=== PATIENT | female | born 1980 | race American Indian/Alaskan Native ===

== ENCOUNTER 2017-04-21 22:57 | Emergency (ER) | payer MEDICAID ==
[2017-04-22 01:37] LABS: Bacteria,Urine 2+ /HPF (Negative); Bilirubin,Urine NEG (Negative); Blood,Urine SM (Negative); Ketones,Urine NEG (Negative); Leukocyte Esterase,Urine TR (Negative); Mucus,Urine FEW /HPF; Nitrite,Urine NEG (Negative); Protein,Urine <15 mg/dL mg/dL (Negative); Urobilinogen,Urine < 2.0 mg/dL (<2.0)
[2017-04-22 01:40] LABS: Basophils % (Auto) 0.6 % (0.0-1.8); Eosinophils % (Auto) 1.8 % (0.0-4.3); Hematocrit 38.9 % (30.3-42.9); Hemoglobin 13.4 gm/dl (10.1-14.3); Mean Corpuscular HGB Conc 34 % (30-34); Mean Corpuscular Hemoglobin 30 pg (28-32); Mean Corpuscular Volume 86 fl (79-97); Platelet Count 227 K/mm3 (140-440); Red Cell Distribution Width 13.8 % (13.2-15.2); White Blood Count 8.4 K/mm3 (4.5-11.0)
[2017-04-22] MEDS ORDERED: ZITHROMAX PO ONE (01:54)
[2017-04-22] MEDS ORDERED: CATAPRES PO ONE (01:54)
[2017-04-22] MEDS ORDERED: ROCEPHIN 250 MG in NACL 0.9% 50 ML IV ONE (01:54)
[2017-04-22] MEDS ORDERED: ROCEPHIN ONE (02:30)
--- NOTE | 2017-04-22 02:56 | Emergency Department Report ---
ED Chest Pain HPI - General Chief Complaint: Urogenital-Female Stated Complaint: STD Time Seen by Provider: 04/22/17 00:51 Source: patient Mode of arrival: Ambulatory Limitations: No Limitations - History of Present Illness Initial Comments: 36-year-old female with a past medical history of hypertension presents to the hospital with multiple complaints. Complaint #1: Possible STD exposure Patient is accompanied by her boyfriend who is also a patient it was examined by me. He has zhen penile discharge and they had unprotected sex. Patient denies any abnormal discharge, pelvic pain, or dysuria. Complaint #2: Uncontrolled blood pressure Patient admits to being noncompliant with her lisinopril hydrochlorothiazide 20/ 25 mg. She did take 1 tablet this evening after her blood pressure was checked in triage but does not take the medication because it gives her headache and patient states she has lost some weight. She has not discussed a side effect with her PMD. Upon further questioning patient complains of intermittent sharp chest pain during exertion worse for the past week. She has a history of DVT in the past not currently on anticoagulation. Patient denies calf pain. 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 Patient denies previous history of stress test. Patient is not forthcoming with complaint because she does not want to be admitted to the hospital but has agreed to some ED workup. Severity scale (0 -10): 5 - Related Data Previous Rx's Medication Instructions Recorded Last Taken Type Nitrofurantoin Monohyd/M-Cryst 100 mg PO BID #10 capsule 04/22/17 Unknown Rx [Macrobid 100 mg Capsule] amLODIPine [Norvasc] 10 mg PO DAILY #30 tab 04/22/17 Unknown Rx Allergies Allergy/AdvReac Type Severity Reaction Status Date / Time No Known Allergies Allergy Verified 04/22/17 01:58 Heart Score - HEART Score History: Slightly suspicious EKG: Non-specific Age: < 45 Risk factors: 1-2 risk factors Troponin: < normal limit HEART Score: 2 ED Review of Systems ROS: Stated complaint: STD Other details as noted in HPI Comment: All other systems reviewed and negative Other: Constitutional: No fevers chills Eyes: No eye pain visual changes ENT: No ear pain or throat pain Neck: Denies pain Respiratory: Denies cough wheezing Cardiovascular: Denies palpitations, syncope GI: Denies abdominal pain, nausea, vomiting, diarrhea : Denies dysuria, urinary frequency, or urgency Musculoskeletal: Denies back pain, joint swelling Skin: Denies rash Neurologic: Denies headache, numbness, weakness Psychiatric: Denies suicidal ideation, hallucinations ED Past Medical Hx - Past Medical History Previous Medical History?: Yes Hx Hypertension: Yes Hx Deep Vein Thrombosis: Yes - Surgical History Past Surgical History?: No - Social History Smoking Status: Never Smoker Substance Use Type: None - Medications Home Medications: Home Medications Medication Instructions Recorded Confirmed Last Taken Type Nitrofurantoin Monohyd/M-Cryst 100 mg PO BID #10 capsule 04/22/17 Unknown Rx [Macrobid 100 mg Capsule] amLODIPine [Norvasc] 10 mg PO DAILY #30 tab 04/22/17 Unknown Rx ED Physical Exam - General Limitations: No Limitations - Other Other exam information: General: No limitations, patient is alert in no acute distress Head exam: Atraumatic, normocephalic Eyes exam: Normal appearance ENT: Moist mucous membrane, normal oropharynx Neck exam: Normal inspection, full range of motion, no meningismus nontender Respiratory exam: Clear to auscultation bilateral, no wheezes, rales, crackles Cardiovascular: Normal rate and rhythm, normal heart sounds Abdomen: Soft, nondistended, and nontender, with normal bowel sounds, no rebound, or guarding : No vaginal discharge, CMT, or adnexal tenderness Extremity: Limit to range of motion of right hip secondary to previous surgery for tenderness or edema Back: Normal Inspection, full range of motion, no tenderness Neurologic: Alert, oriented x3, cranial nerves intact, no motor or sensory deficit Psychiatric: normal affect, normal mood Skin: Warm, dry, intact ED Course Vital Signs 04/21/17 04/21/17 04/22/17 23:04 23:13 01:04 Temperature 98.3 F Pulse Rate 109 H 93 H 87 Respiratory 17 21 Rate Blood Pressure 211/117 Blood Pressure 175/110 [Right] O2 Sat by Pulse 98 Oximetry 04/22/17 04/22/17 04/22/17 01:05 01:06 01:07 Temperature Pulse Rate 92 H 87 90 Respiratory 16 16 27 H Rate Blood Pressure 167/102 167/102 Blood Pressure [Right] O2 Sat by Pulse Oximetry 04/22/17 04/22/17 04/22/17 01:09 01:11 01:13 Temperature Pulse Rate 84 86 83 Respiratory 21 20 15 Rate Blood Pressure 167/102 167/102 167/102 Blood Pressure [Right] O2 Sat by Pulse Oximetry 04/22/17 04/22/17 04/22/17 01:15 01:17 01:19 Temperature Pulse Rate 81 99 H 88 Respiratory 20 29 H 32 H Rate Blood Pressure 165/102 165/102 165/102 Blood Pressure [Right] O2 Sat by Pulse Oximetry 04/22/17 04/22/17 04/22/17 01:21 01:23 01:25 Temperature Pulse Rate 111 H 95 H 87 Respiratory 13 24 23 Rate Blood Pressure 165/102 165/102 165/102 Blood Pressure [Right] O2 Sat by Pulse Oximetry 04/22/17 04/22/17 04/22/17 01:27 01:29 01:30 Temperature 98.2 F Pulse Rate 88 94 H 91 H Respiratory 15 33 H 26 H Rate Blood Pressure 165/102 165/102 162/111 Blood Pressure 165/102 [Right] O2 Sat by Pulse 97 Oximetry 04/22/17 04/22/17 04/22/17 01:53 01:55 01:57 Temperature Pulse Rate 79 80 88 Respiratory 19 21 21 Rate Blood Pressure 181/113 181/113 181/113 Blood Pressure [Right] O2 Sat by Pulse Oximetry 04/22/17 04/22/17 04/22/17 01:58 01:59 02:00 Temperature Pulse Rate 80 81 86 Respiratory 21 28 H 30 H Rate Blood Pressure 164/100 164/100 156/104 Blood Pressure [Right] O2 Sat by Pulse Oximetry 04/22/17 04/22/17 04/22/17 02:01 02:03 02:05 Temperature Pulse Rate 82 85 84 Respiratory 27 H 24 17 Rate Blood Pressure 156/104 156/104 156/104 Blood Pressure [Right] O2 Sat by Pulse Oximetry 04/22/17 04/22/17 04/22/17 02:07 02:09 02:11 Temperature Pulse Rate 86 81 80 Respiratory 19 18 27 H Rate Blood Pressure 156/104 156/104 143/97 Blood Pressure [Right] O2 Sat by Pulse Oximetry 04/22/17 04/22/17 04/22/17 02:13 02:15 02:17 Temperature Pulse Rate 94 H 91 H 89 Respiratory 17 14 18 Rate Blood Pressure 143/97 143/97 143/97 Blood Pressure [Right] O2 Sat by Pulse Oximetry 04/22/17 04/22/17 04/22/17 02:19 02:20 02:21 Temperature Pulse Rate 95 H 84 86 Respiratory 17 15 25 H Rate Blood Pressure 143/97 143/97 143/97 Blood Pressure [Right] O2 Sat by Pulse Oximetry 04/22/17 04/22/17 04/22/17 02:22 02:23 02:41 Temperature Pulse Rate 78 81 Respiratory 22 18 Rate Blood Pressure 148/98 148/98 156/102 Blood Pressure [Right] O2 Sat by Pulse Oximetry 04/22/17 04/22/17 04/22/17 02:45 02:55 03:00 Temperature Pulse Rate 77 Respiratory Rate Blood Pressure 151/106 151/106 167/113 Blood Pressure [Right] O2 Sat by Pulse Oximetry 04/22/17 04/22/17 04/22/17 03:13 03:15 03:17 Temperature Pulse Rate 77 78 76 Respiratory 14 25 H 24 Rate Blood Pressure 167/113 146/99 146/99 Blood Pressure [Right] O2 Sat by Pulse Oximetry 04/22/17 04/22/17 04/22/17 03:19 03:21 03:23 Temperature Pulse Rate 85 72 76 Respiratory 15 22 21 Rate Blood Pressure 146/99 146/99 146/99 Blood Pressure [Right] O2 Sat by Pulse Oximetry 04/22/17 04/22/17 04/22/17 03:25 03:27 03:29 Temperature Pulse Rate 77 72 72 Respiratory 24 21 21 Rate Blood Pressure 146/99 146/99 146/99 Blood Pressure [Right] O2 Sat by Pulse Oximetry 04/22/17 04/22/17 04/22/17 03:30 03:31 03:33 Temperature Pulse Rate 79 77 77 Respiratory 21 20 21 Rate Blood Pressure 144/87 144/87 144/87 Blood Pressure [Right] O2 Sat by Pulse Oximetry 04/22/17 04/22/17 04/22/17 03:35 03:37 03:39 Temperature Pulse Rate 73 90 85 Respiratory 20 21 21 Rate Blood Pressure 144/87 144/87 144/87 Blood Pressure [Right] O2 Sat by Pulse Oximetry 04/22/17 04/22/17 04/22/17 03:41 03:43 03:45 Temperature Pulse Rate 75 81 78 Respiratory 21 20 18 Rate Blood Pressure 144/87 144/87 130/84 Blood Pressure [Right] O2 Sat by Pulse Oximetry 04/22/17 04/22/17 04/22/17 03:47 03:49 03:51 Temperature Pulse Rate 87 83 87 Respiratory 22 20 24 Rate Blood Pressure 130/84 130/84 151/106 Blood Pressure [Right] O2 Sat by Pulse Oximetry 04/22/17 04/22/17 04/22/17 03:53 03:55 03:57 Temperature Pulse Rate 68 101 H 90 Respiratory 24 21 23 Rate Blood Pressure 151/106 151/106 151/106 Blood Pressure [Right] O2 Sat by Pulse Oximetry 04/22/17 04/22/17 04/22/17 03:59 04:00 04:01 Temperature Pulse Rate 80 73 98 H Respiratory 20 22 22 Rate Blood Pressure 151/106 126/86 167/113 Blood Pressure [Right] O2 Sat by Pulse Oximetry 04/22/17 04:09 Temperature Pulse Rate 98 H Respiratory Rate Blood Pressure Blood Pressure 126/86 [Right] O2 Sat by Pulse Oximetry - Reevaluation(s) Reevaluation #1: 04/22/17 05:34 Blood pressure improved at the clonidine. Patient is asymptomatic. Patient is adamant that she does not want to be admitted to the hospital for chest pain evaluation YASMEEN score - Yasmeen Score Age > 65: (0) No Aspirin use within the Past 7 Days: (0) No 3 or more CAD Risk Factors: (0) No 2 or more Angina events in past 24 hrs: (0) No Known CAD with more than 50% Stenosis: (0) No ST Deviation Greater than 0.5mm: (0) No ED Medical Decision Making - Lab Data Result diagrams: 04/22/17 01:23 04/22/17 01:23 Lab Results 04/21/17 04/22/17 04/22/17 Range/Units 01:11 01:23 01:23 WBC 8.4 (4.5-11.0) K/mm3 RBC 4.50 (3.65-5.03) M/mm3 Hgb 13.4 (10.1-14.3) gm/dl Hct 38.9 (30.3-42.9) % MCV 86 (79-97) fl MCH 30 (28-32) pg MCHC 34 (30-34) % RDW 13.8 (13.2-15.2) % Plt Count 227 (140-440) K/mm3 Lymph % (Auto) 41.3 H (13.4-35.0) % [place] % (Auto) 7.8 H (0.0-7.3) % Eos % (Auto) 1.8 (0.0-4.3) % Baso % (Auto) 0.6 (0.0-1.8) % Lymph # 3.5 (1.2-5.4) K/mm3 [place] # 0.7 (0.0-0.8) K/mm3 Eos # 0.2 (0.0-0.4) K/mm3 Baso # 0.0 (0.0-0.1) K/mm3 Seg Neutrophils % 48.5 (40.0-70.0) % Seg Neutrophils # 4.1 (1.8-7.7) K/mm3 D-Dimer (0-234) ng/mlDDU Sodium 140 (137-145) mmol/L Potassium 3.6 (3.6-5.0) mmol/L Chloride 102.6 (98-107) mmol/L Carbon Dioxide 24 (22-30) mmol/L Anion Gap 17 mmol/L BUN 9 (7-17) mg/dL Creatinine 0.5 L (0.7-1.2) mg/dL Estimated GFR > 60 ml/min BUN/Creatinine Ratio 18 % Glucose 123 H (65-100) mg/dL Calcium 9.0 (8.4-10.2) mg/dL Troponin T (0.00-0.029) ng/mL HCG, Qual (Negative) Urine Color Yellow (Yellow) Urine Turbidity Clear (Clear) Urine pH 5.0 (5.0-7.0) Ur Specific [place] 1.016 (1.003-1.030) Urine Protein <15 mg/dl (Negative) mg/dL Urine Glucose (UA) Neg (Negative) mg/dL Urine Ketones Neg (Negative) mg/dL Urine Blood Sm (Negative) Urine Nitrite Neg (Negative) Urine Bilirubin Neg (Negative) Urine Urobilinogen < 2.0 (<2.0) mg/dL Ur Leukocyte Esterase Tr (Negative) Urine WBC (Auto) 10.0 H (0.0-6.0) /HPF Urine RBC (Auto) 2.0 (0.0-6.0) /HPF U Epithel Cells (Auto) 1.0 (0-13.0) /HPF Urine Bacteria (Auto) 2+ (Negative) /HPF Hyaline Casts 1 /LPF Urine Mucus Few /HPF Urine HCG, Qual Negative (Negative) 04/22/17 04/22/17 04/22/17 Range/Units 01:23 01:23 02:18 WBC (4.5-11.0) K/mm3 RBC (3.65-5.03) M/mm3 Hgb (10.1-14.3) gm/dl Hct (30.3-42.9) % MCV (79-97) fl MCH (28-32) pg MCHC (30-34) % RDW (13.2-15.2) % Plt Count (140-440) K/mm3 Lymph % (Auto) (13.4-35.0) % [place] % (Auto) (0.0-7.3) % Eos % (Auto) (0.0-4.3) % Baso % (Auto) (0.0-1.8) % Lymph # (1.2-5.4) K/mm3 [place] # (0.0-0.8) K/mm3 Eos # (0.0-0.4) K/mm3 Baso # (0.0-0.1) K/mm3 Seg Neutrophils % (40.0-70.0) % Seg Neutrophils # (1.8-7.7) K/mm3 D-Dimer 152.86 (0-234) ng/mlDDU Sodium (137-145) mmol/L Potassium (3.6-5.0) mmol/L Chloride (98-107) mmol/L Carbon Dioxide (22-30) mmol/L Anion Gap mmol/L BUN (7-17) mg/dL Creatinine (0.7-1.2) mg/dL Estimated GFR ml/min BUN/Creatinine Ratio % Glucose (65-100) mg/dL Calcium (8.4-10.2) mg/dL Troponin T < 0.010 (0.00-0.029) ng/mL HCG, Qual Negative (Negative) Urine Color (Yellow) Urine Turbidity (Clear) Urine pH (5.0-7.0) Ur Specific [place] (1.003-1.030) Urine Protein (Negative) mg/dL Urine Glucose (UA) (Negative) mg/dL Urine Ketones (Negative) mg/dL Urine Blood (Negative) Urine Nitrite (Negative) Urine Bilirubin (Negative) Urine Urobilinogen (<2.0) mg/dL Ur Leukocyte Esterase (Negative) Urine WBC (Auto) (0.0-6.0) /HPF Urine RBC (Auto) (0.0-6.0) /HPF U Epithel Cells (Auto) (0-13.0) /HPF Urine Bacteria (Auto) (Negative) /HPF Hyaline Casts /LPF Urine Mucus /HPF Urine HCG, Qual (Negative) - EKG Data -: EKG Interpreted by Me (LVH with repol) EKG shows normal: sinus rhythm, ST-T waves (no elevation) Rate: normal (74) - EKG Data When compared to previous EKG there are: previous EKG unavailable - Medical Decision Making Patient declines admission for chest pain workup and prefers to follow up as outpatient. At this time no signs of acute ST elevation [place]. Blood pressure improved. Patient treated empirically for gonorrhea and chlamydia. Culture pending. He discharged on Macrobid secondary to ear leukocytosis. Patient also requesting alternative BP medication and Norvasc will be prescribed instead of her current pills - Differential Diagnosis [place], PE, atypical chest pain, hypertensive emergency, STD Critical Care Time: No Critical care attestation.: If time is entered above; I have spent that time in minutes in the direct care of this critically ill patient, excluding procedure time. ED Disposition Clinical Impression: STD exposure, Uncontrolled hypertension, UTI (urinary tract infection), Noncompliance with medication regimen, Chest pain Disposition: [id number] PSY HOSP/PSY UNIT Is pt being admited?: No Does the pt Need Aspirin: No Condition: Stable Instructions: Hypertension (ED), Chest Pain (ED), Urinary Tract Infection in Women (ED), Sexually Transmitted Diseases (ED) Additional Instructions: Take the medication as prescribed. Start the Norvasc 10 mg and discontinue your current blood pressure medication. Follow-up with your physician and the paperhanger supervisor provided. Continue to monitor your blood pressure. Please return if symptoms worsen. You have declined admission at this time for further workup of your chest pain Prescriptions: amLODIPine [Norvasc] 10 mg PO DAILY #30 tab Nitrofurantoin Monohyd/M-Cryst [Macrobid 100 mg Capsule] 100 mg PO BID #10 capsule Referrals: PRIMARY CARE, [Primary Care Provider] - 3-5 Days SHARDA CREWS MD [Staff Physician] - 3-5 Days (cardiology) Time of Disposition: 05:40
[2017-04-22 03:40] LABS: Anion Gap 17 mmol/L; BUN/Creatinine Ratio 18; Blood Urea Nitrogen 9 mg/dL (7-17); Carbon Dioxide 24 mmol/L (22-30); Chloride 102.6 mmol/L (98-107); Glucose 123 mg/dL (65-100); Potassium 3.6 mmol/L (3.6-5.0); Sodium 140 mmol/L (137-145)
[2017-04-22 05:42] VITALS: BP 167/113
== END 2017-04-22 05:49 ==
LOC: ED 22:57
DX: I10 Essential (primary) hypertension (principal); N39.0 Urinary tract infection, site not specified; R07.9 Chest pain, unspecified; Z20.2 Contact with and (suspected) exposure to infections with a predominantly sexual mode of transmission; Z91.14 Patient's other noncompliance with medication regimen; I82.409 Acute embolism and thrombosis of unspecified deep veins of unspecified lower extremity
CPT/HCPCS: 36415; 80048; 81001; 81025; 84484; 84703; 85025; 85379; 87086; 87186; 87210; 87591; 93005; 93010; 96365; 99284; J0696